=== PATIENT | female | born 1990 | race Caucasian/White ===

== ENCOUNTER → 2021-06-23 | Outpatient (CLI) | payer MEDICAID, OTHER ==
[2021-06-23] VITALS (7 sets, daily range): BP systolic 121–138; BP diastolic 74–99
[~2021-06-23] VITALS: Ht 170.2 cm; Wt 84.8 kg
[~2021-06-23] MED LIST: REGENERON 1200mg/250ml NS 250 ML IV ONE
== END | disposition home or self-care (01) ==
LOC: ER 15:00
PROVIDERS: ATTEND Internal Medicine
DX: U07.1 COVID-19 (principal)
CPT/HCPCS: J7050; M0243; Q0244